=== PATIENT | male | born 1990 | race Caucasian/White ===

== ENCOUNTER 2016-11-13 01:02 | Emergency (ER) | payer OTHER ==
[2016-11-13 01:05] VITALS: BP 183/118; PULSE 80; RESP 16; O2SAT 99
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
[2016-11-13 01:32] VITALS: BP 183/118; PULSE 80; RESP 16; O2SAT 99
== END 2016-11-13 01:32 | disposition home or self-care (01) ==
LOC: SED 01:02
DX: S30.22XA Contusion of scrotum and testes, initial encounter (principal); W50.0XXA Accidental hit or strike by another person, initial encounter; Y93.9 Activity, unspecified; Y92.239 Unspecified place in hospital as the place of occurrence of the external cause; Y99.0 Civilian activity done for income or pay; I10 Essential (primary) hypertension; F17.200 Nicotine dependence, unspecified, uncomplicated

== ENCOUNTER 2016-12-12 00:28 | Emergency (ER) | payer OTHER ==
[~2016-12-12] VITALS: Ht 185.4 cm; Wt 104.5 kg
[2016-12-12 00:31] VITALS: BP 205/141; PULSE 125; RESP 26; O2SAT 96
[2016-12-12] MEDS ORDERED: Ondansetron 8 mg ODT Tablet PO ONE (01:15)
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
[2016-12-12 03:10] VITALS: BP 140/90; PULSE 100; RESP 20; O2SAT 98
== END 2016-12-12 03:11 | disposition home or self-care (01) ==
LOC: SED 00:28
DX: S09.90XA Unspecified injury of head, initial encounter (principal); Y04.0XXA Assault by unarmed brawl or fight, initial encounter; Y93.89 Activity, other specified; Y92.69 Other specified industrial and construction area as the place of occurrence of the external cause; Y99.0 Civilian activity done for income or pay; R11.10 Vomiting, unspecified; R25.1 Tremor, unspecified; I10 Essential (primary) hypertension; F17.200 Nicotine dependence, unspecified, uncomplicated

== ENCOUNTER 2017-05-14 06:08 | Emergency (ER) | payer OTHER ==
[~2017-05-14] VITALS: Ht 188 cm; Wt 100.0 kg
--- NOTE | 2017-05-14 06:12 | ED.REPORT ---
HPI-Neck Pain Free Text HPI Notes May 14, 2017 ED Provider: Rodolfo Franco MD Patient is a 27 year old male who presents to the ED complaining of neck pain onset last night. 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 He states that the pain is exacerbated with certain movements and he describes the pain as sharp. When he does not move his neck the pain is constant but dull. Patient denies extremity pain, abdominal pain, chest pain or shortness of breath. Nursing Notes Stated Complaint: NECK INJURY Nursing Notes Reviewed: Yes Allergies: Coded Allergies: No Known Allergies (Unverified , 11/13/16) General Time Seen by Provider: 06:30 Chief Complaint Neck injury Hx Obtained From: Patient Arrived By: Walk-in Sudden in Onset?: Yes Onset Occurred: 9 - 12 hours ago Symptom Duration: Since onset Caused by: Twisting / turning neck Location: : Lateral neck left Quality: Dull, Painful, Sharp Radiation: : Does not radiate Severity: Current: Moderate Exacerbated by: Flexion, Turn to left Related History: Reports: Hypertension Similar Sx Previous: No Past Medical History Past Medical History Reports: Hypertension Past Surgical History T&A Smoking History Current Every Day Smoker, Light Tobacco Smoker Social History Alcohol Use: "Social" Other Social History: Good social support, Local resident 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 Physical Exam Initial Vital Signs Vital Signs (First) Date Time Temp Pulse Resp B/P Pulse Ox O2 Delivery O2 Flow Rate FiO2 05/14/17 06:19 36.4 73 16 149/108 99 Room Air Initial VS: Reviewed General/Constitutional: Awake, Alert NECK: limited range of motion to the left compared to the right flexion worse than extension Neurologic: Oriented X3, Speech NL, No motor deficits, No sensory deficits Respiratory / Chest: Atraumatic, Breath sounds NL, Breath sounds = bilat, No respiratory distress Cardiovascular: Heart rate NL, Regular rhythm, Heart sounds NL Upper Extremity / MS: Atraumatic, Full range of motion Skin: Atraumatic, Color NL, No rash, Warm, Dry Head / Eyes: Atraumatic, Normocephalic, PERRL, EOMI Lower Extremity / Pelvis / MS: Atraumatic, Full range of motion Psychiatric: Affect NL, Mood NL Re-Eval/Medical Decision Re-Evaluation/Progress : Time of Eval: 06:38 Re-Evaluation/Progress Note: Discussed plan for discharge. Patient understands and agrees to plan. All questions were addressed. Counseled Regarding: Diagnosis, Lab results, Need for follow-up, When/why to return to ED Discharge & Departure Primary Impression: Cervical strain, acute Encounter type: initial encounter Qualified Code: S16.1XXA - Strain of muscle, fascia and tendon at neck level, initial encounter Disposition: Home Discharge Condition All VS Reviewed: Yes Condition: Stable Patient Instructions: Neck Strain Exercises (GEN) Additional Instructions: You can use ibuprofen or naproxen as needed for pain/inflammation. Try to do neck exercises gently as tolerated by your pain. Follow up with your primary care physician next week if not improving. Return to the emergency department if you develop any new or concerning symptoms including numbness, weakness or tingling of extremities. Referrals: Hernan Ellington (PCP) ED Scribe Statement Portions of this note were transcribed by Octavia Vera. I, Dr. Franco personally performed the history, physical exam and medical decision-making; I reviewed and confirmed the accuracy of the information in the transcribed note. Signed by: Anayeli Gonzalez, 05/14/17 copies to: Hernan Ellington Kirk H MD May 14, 2017 06:12 Arelis Vera May 14, 2017 06:21
[2017-05-14 06:19] VITALS: BP 149/108; PULSE 73; RESP 16; O2SAT 99
[2017-05-14 06:37] VITALS: BP 138/98; PULSE 78; RESP 16; O2SAT 100
== END 2017-05-14 06:42 | disposition home or self-care (01) ==
LOC: SED 06:08
DX: S16.1XXA Strain of muscle, fascia and tendon at neck level, initial encounter (principal); X50.0XXA Overexertion from strenuous movement or load, initial encounter; Y93.89 Activity, other specified; Y99.0 Civilian activity done for income or pay; Y92.230 Patient room in hospital as the place of occurrence of the external cause; I10 Essential (primary) hypertension; F17.200 Nicotine dependence, unspecified, uncomplicated